=== PATIENT | female | born 1950 | race Caucasian/White ===

== ENCOUNTER → 2017-01-15 | Outpatient (CLI) | payer BC | END | disposition home or self-care (01) | LOC: MAMMO 11:30 | PROVIDERS: ATTEND Emergency Medicine | DX: Z12.31 Encounter for screening mammogram for malignant neoplasm of breast (principal) | CPT/HCPCS: 77063; G0202 ==

== ENCOUNTER → 2018-04-22 | Outpatient (CLI) | payer MEDICARE, OTHER ==
--- NOTE | 2018-04-24 09:39 | MAM ---
EXAM DESCRIPTION: 3D Screening BILATERAL : Digital Mammography. CLINICAL HISTORY: 68 years Female SCREENING . No complaints or personal history of breast cancer. Sister with breast cancer. Childbirth. Postmenopausal 11 years.. No HRT. Lifetime risk of developing breast cancer (Tyrer-Cuzick model)(%): 4.9. COMPARISON: Digital screening bilateral breast tomosynthesis 01/15/2017. TECHNIQUE: Bilateral CC and MLO projection full-field images, digital tomosynthesis mammographic technique. Bilateral digital 2-D full-field MLO images. CAD not available for tomosynthesis or 2-D images. FINDINGS: The breast parenchymal density pattern is: Scattered areas of fibroglandular density. No skin thickening or nipple retraction. . Left axillary lymph nodes. Solitary microcalcifications left breast. No new focal, stellate mass or density, focal asymmetry , and no suspicious microcalcifications bilaterally. Stable mammograms compared to prior study. IMPRESSION: Benign exam. BIRAD CATEGORY: 2 BENIGN FINDINGS. RECOMMENDATIONS: FOLLOW UP: Routine digital bilateral mammographic screening, one year interval from April 2018. Written communication explaining the IMPRESSION and follow-up, will be mailed to the patient and referring health care provider. According to the [employer], yearly mammograms are recommended starting at age 40 and continuing as long as a woman is in good health. Any breast change noted on a breast self-exam should be reported promptly to the patient's healthcare provider. Breast MRI is recommended for women with an approximately 20-25% or greater lifetime risk of breast cancer, including women with a strong family history of breast or ovarian cancer and women who have been treated for Hodgkin's disease. A negative mammographic report should not delay tissue diagnosis in patients with significant clinical history or physical findings. Extremely dense breast tissue limits the sensitivity of digital mammography. Electronically signed by: Felipe Rollins MD 04/24/2018 9:37 AM [employer]
== END ==
LOC: MAMMO 13:14
PROVIDERS: ATTEND Emergency Medicine
DX: Z12.31 Encounter for screening mammogram for malignant neoplasm of breast (principal)

== ENCOUNTER → 2019-05-06 | Outpatient (CLI) | payer MEDICARE, OTHER ==
--- NOTE | 2019-05-08 14:35 | MAM ---
EXAM DESCRIPTION: 3D Screening BILATERAL : Digital Mammography. CLINICAL HISTORY: 69 years Female ANNUAL SCREENING . No complaints. No personal history of breast cancer. Female sibling with breast cancer age 60. Remote family history of breast cancer. Menarche age 13. Childbirth age 21. Hysterectomy age unknown. No HRT. Lifetime risk of developing breast cancer (Tyrer-Cuzick model)(%): COMPARISON: Bilateral screening digital breast tomosynthesis April 2018 and December 2016. TECHNIQUE: Bilateral CC and MLO projection full-field images, digital tomosynthesis mammographic technique. Bilateral digital 2-D full-field MLO images. CAD available for 2-D images. FINDINGS: The breast parenchymal density pattern is: Scattered areas of fibroglandular density. No skin thickening or nipple retraction. Stable group of microcalcifications inferior anterior right breast left axillary lymph nodes. Vascular calcifications. No new focal, stellate mass or density, focal asymmetry , and no suspicious microcalcifications bilaterally. Stable mammograms compared to prior study. IMPRESSION: Benign exam. BIRAD CATEGORY: 2 BENIGN FINDINGS. RECOMMENDATIONS: FOLLOW UP: Routine digital bilateral mammographic screening, one year interval from March 2019. Written communication explaining the IMPRESSION and follow-up, will be mailed to the patient and referring health care provider. According to the [employer], yearly mammograms are recommended starting at age 40 and continuing as long as a woman is in good health. Any breast change noted on a breast self-exam should be reported promptly to the patient's healthcare provider. Breast MRI is recommended for women with an approximately 20-25% or greater lifetime risk of breast cancer, including women with a strong family history of breast or ovarian cancer and women who have been treated for Hodgkin's disease. A negative mammographic report should not delay tissue diagnosis in patients with significant clinical history or physical findings. Extremely dense breast tissue limits the sensitivity of digital mammography. Electronically signed by: Felipe Rollins MD 05/08/2019 2:33 PM SENIOR PRODUCER
== END ==
LOC: MAMMO 08:51
PROVIDERS: ATTEND Emergency Medicine
DX: Z12.31 Encounter for screening mammogram for malignant neoplasm of breast (principal)

== ENCOUNTER 2020-01-08 02:02 | Emergency (ER) | payer MEDICARE, OTHER ==
[2020-01-08] MEDS ORDERED: DEXAMETHASONE INJ 10 MG/ML VIAL IV ONE (02:36)
[2020-01-08] MEDS ORDERED: DEXAMETHASONE INJ 4 MG/ML VIAL IV ONE ×2 (02:37→03:25)
--- NOTE | 2020-01-08 02:37 | ED.PDOC ---
History of Present Illness - General Chief Complaint: General Stated Complaint: weak, sob, and dry mouth Time Seen by Provider: 01/08/20 02:25 Source: patient, RN notes reviewed, Vital Signs reviewed, other Exam Limitations: no limitations - History of Present Illness Initial Comments: 69 yo F with a hx of sjogrens syndrome which she takes plaquenil comes in with the c/c of shortness of breath. States she started to feel short of breath Sunday. Went to a different hospital at that time and had workup and sent home. Tonight she got significantly more short of breath. Denies chest pain, recent travel or recent immobilization. Denies cough. No known covid exposure. did have change in her taste. Quit smoking in 2006. Patient states she has not been able to eat or drink anything in several days because she feels like she can't breath when she does. Timing/Duration: 1 week Allergies/Adverse Reactions: Allergies NO KNOWN ALLERGY Allergy (Verified 01/08/20 02:25) Review of Systems - Review of Systems Constitutional: States: fever - subjective, malaise. Denies: chills EENTM: Denies: blurred vision, ear discharge, throat pain, throat swelling, mouth pain Respiratory: States: short of breath. Denies: cough, orthopnea, stridor, wheezing Cardiology: Denies: chest pain, palpitations Gastrointestinal/Abdominal: Denies: abdominal pain, diarrhea, nausea, vomiting Genitourinary: Denies: frequency, hematuria Musculoskeletal: Denies: joint pain, muscle pain Skin: Denies: change in hair/nails, dryness, rash Neurological: Denies: headache, numbness, paresthesia, pre-existing deficit, tingling, tremors, weakness Endocrine: Denies: unexplained weight gain, unexplained weight loss Hematologic/Lymphatic: Denies: blood clots, easy bleeding, easy bruising Past Medical History (General) - Patient Medical History Hx Seizures: No Hx Stroke: No Hx Dementia: No Hx Asthma: No Hx of COPD: No Hx Cardiac Disorders: No Hx Congestive Heart Failure: No Hx Pacemaker: No Hx Hypertension: No Hx Thyroid Disease: No Hx Diabetes: No - pre-diabetes Hx Gastroesophageal Reflux: No Hx Renal Disease: No Hx Cancer: No Hx of HIV: No Hx Hepatitis B: No Hx Hepatitis C: No Hx MRSA: No Hx Other PMH: Yes - sjogrens - Vaccination History Hx Influenza Vaccination: Yes - Social History Hx Tobacco Use: Yes Hx Chewing Tobacco Use: No Hx Alcohol Use: No Hx Substance Use: No Hx Substance Use Treatment: No Hx Depression: No Feels Threatened In Home Enviroment: No Feels Threatened In a Relationship: No Hx Physical Abuse: No Hx Emotional Abuse: No Hx Suspected Abuse: No - Female History Patient is a Female of Child Bearing Age (10 -59 yrs old): No Family Medical History - Family History Mother Family History: No Known Physical Exam - Physical Exam General Appearance: Alert, Anxious, Comfortable, Well Developed, Well Groomed, Well Hydrated, Well Nourished Eyes, Ears, Nose, Throat Exam: PERRL/EOMI, normal ENT inspection, TMs normal Neck: non-tender, full range of motion, supple, normal inspection Respiratory: chest non-tender, lungs clear, normal breath sounds, decreased breath sounds, accessory muscle use, other - tachypnea, accessory muscle use. 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 Upon arrival Patient bp systolic 97, HR 115-120, Saturation 80% on RA. Place on nonrebreather, still hypoxic, thus placed on bipap Fio2 70%. Attempted to wean down FIO2, but patient desaturated to 89%. Patient is resting comfortably at this time on bipap. COVID positive. Will give Dexamethasone and remdesivir. Appears to be an acute renal failure, last Cr was 0.89. Will hydrate. Evidence bilaterally pulmonary infiltrates with pumonary congestion noted. This should be helped with bipap. Due to Sepsis and KENDELL most likely due to dehydration will continue with fluids. BP improved to 124/88. Respirations improved. Patient sleeping comfortably with bipap. D-dimer elevated, may have underlying PE, will hold of on CTA for now. Will give a dose of heparin. 01/08/20 04:47 Called 4 different hospitals all covid units full, including ICU. [facility] accepted patient, state they have to dispo a patient to open ICU room. Will have room available at 645Am. Patient is stable at this time. Will continue to monitor. The data reviewed when caring for this patient included: nurse notes, prior records, etc. The history and assessments from nurses notes were reviewed and considered, and the patient's home medication list was also reviewed and considered. My assessment and the results of testing completed here in the ED were discussed with the patient/family. Patient has been accepted at [facility]. Pending bed. Katelin Rivas DO #[id number] 01/08/20 05:55 - Results/Orders Results/Orders: 01/08/20 02:30 BiPAP/CPAP Treatment ONCE 01/08/20 02:58 Sodium Chloride 0.9% 1000ML [Ns 1000 ml] 1,000 ml IVS STAT 01/08/20 03:00 Pulse Ox, Continuous Monitoring STAT 01/08/20 03:06 ABG [Arterial Blood Gas] Stat 01/08/20 03:30 EKG STAT 01/08/20 09:00 Remdesivir 200 mg Sodium Chloride 0.9% 250Ml [NS 250ml] 250 ml IVPB DAILY 01/09/20 03:00 Pulse Ox, Continuous Monitoring STAT 01/10/20 03:00 Pulse Ox, Continuous Monitoring STAT Laboratory Results WBC 10.9 K/mm3 (4.8-10.8) H 01/08/20 02:16 RBC 4.35 M/mm3 (4.20-5.40) 01/08/20 02:16 Hgb 13.0 gm/dL (12.0-16.0) 01/08/20 02:16 Hct 37.1 % (36.0-47.0) 01/08/20 02:16 MCV 85.3 fl (81.0-99.0) 01/08/20 02:16 MCH 29.9 pg (27.0-31.0) 01/08/20 02:16 MCHC 35.0 g/dL (33.0-37.0) 01/08/20 02:16 RDW 13.5 % (11.5-14.5) 01/08/20 02:16 Plt Count 348 K/mm3 (130-400) 01/08/20 02:16 MPV 8.6 fl (7.40-10.4) 01/08/20 02:16 Absolute Neuts (auto) 8.70 K/uL (1.8-6.8) H 01/08/20 02:16 Absolute Lymphs (auto) 1.00 K/uL (1.0-3.4) 01/08/20 02:16 Absolute Monos (auto) 1.20 K/uL (0.2-0.8) H 01/08/20 02:16 Absolute Eos (auto) 0.00 K/uL (0.0-0.4) 01/08/20 02:16 Absolute Basos (auto) 0.10 K/uL (0.0-0.1) 01/08/20 02:16 Neutrophils % 79.4 % (42.0-78.0) H 01/08/20 02:16 Lymphocytes % 8.9 % (20.0-50.0) L 01/08/20 02:16 Monocytes % 10.8 % (2.0-9.0) H 01/08/20 02:16 Eosinophils % 0.4 % (1.0-5.0) L 01/08/20 02:16 Basophils % 0.5 % (0.0-2.0) 01/08/20 02:16 PT 9.6 SECONDS (9.0-10.9) 01/08/20 02:16 INR < 1.00 (0.9-1.15) 01/08/20 02:16 PTT (SP) 32.7 SECONDS (21.8-31.6) H 01/08/20 02:16 D-Dimer, Quantitative 1690.0 ng/ml (131-400) H* 01/08/20 02:16 Sodium 135 mmol/L (135-145) 01/08/20 02:16 Potassium 3.1 mmol/L (3.6-5.0) L 01/08/20 02:16 Chloride 103 mmol/L (101-111) 01/08/20 02:16 Carbon Dioxide 12 mmol/L (21-31) L* 01/08/20 02:16 Anion Gap 23.1 (12-18) H 01/08/20 02:16 BUN 82 mg/dL (7-18) H 01/08/20 02:16 Creatinine 3.36 mg/dL (0.6-1.3) H 01/08/20 02:16 BUN/Creatinine Ratio 24.4 (10-20) H 01/08/20 02:16 Random Glucose 118 mg/dL (70-105) H 01/08/20 02:16 Serum Osmolality 295.9 mOsm/L (275-295) H 01/08/20 02:16 Lactic Acid 3.3 mmol/L (0.5-2.2) H* 01/08/20 02:16 Calcium 8.5 mg/dL (8.4-10.2) 01/08/20 02:16 Phosphorus 7.6 mg/dL (2.5-4.6) H 01/08/20 02:16 Magnesium 2.6 mg/dL (1.8-2.5) H 01/08/20 02:16 Total Bilirubin 0.6 mg/dL (0.2-1.0) 01/08/20 02:16 AST 48 IU/L (10-42) H 01/08/20 02:16 ALT 24 IU/L (10-60) 01/08/20 02:16 Alkaline Phosphatase 68 IU/L (42-121) 01/08/20 02:16 LD Total 555 IU/L (91-180) H 01/08/20 02:16 Creatine Kinase 45 IU/L (26-140) 01/08/20 02:16 Troponin I 0.03 ng/mL (0.01-0.05) 01/08/20 02:16 C-Reactive Protein 20.3 mg/dL (0-1.0) H* 01/08/20 02:16 B-Natriuretic Peptide 42.7 pg/ml (0-100) 01/08/20 02:16 Serum Total Protein 8.4 gm/dL (6.4-8.2) H 01/08/20 02:16 Albumin 3.0 g/dl (3.2-5.5) L 01/08/20 02:16 Globulin 5.4 gm/dL (2.3-3.5) H 01/08/20 02:16 Albumin/Globulin Ratio 0.6 (1.1-1.9) L 01/08/20 02:16 - EKG/XRAY/CT EKG: Sinus, Tachy Comments: normal intervals, nonspecific st/t wave changes. no prior for comparision. XRAY: chest - pulmonary congestion. Departure - Departure Clinical Impression: COVID-19, KENDELL (acute kidney injury) Pneumonia Qualifiers: Pneumonia type: due to unspecified organism Laterality: bilateral Lung location: unspecified part of lung Qualified Code(s): J18.9 - Pneumonia, unspecified organism Sepsis Qualifiers: Sepsis type: sepsis due to unspecified organism Sepsis acute organ dysfunction status: with acute organ dysfunction Severe sepsis acute organ dysfunction type: acute renal failure Acute renal failure type: unspecified Severe sepsis shock status: unspecified Qualified Code(s): A41.9 - Sepsis, unspecified organism Time of Disposition: 05:47 Disposition: Transfer to Hospital Departure Forms: ED Discharge - Pt. Copy, Patient Portal Self Enrollment Transfer to Outside Facility - Transfer Information Decision to Transfer Date: 01/08/20 Decision to Transfer Time: 03:07 Reason for Transfer: ICU Accepting Facility: [facility]
[2020-01-08] MEDS ORDERED: SODIUM CHLORIDE 0.9% 1000ML 1,000 ML IVS PRN (02:58)
--- NOTE | 2020-01-08 03:19 | RAD ---
EXAM DESCRIPTION: Chest,1 View CLINICAL HISTORY: sob COMPARISON: Chest x-ray 01/19/2009 FINDINGS: Cardiac silhouette is within normal limits. There are prominent interstitial markings and diffuse airspace shadowing most prominent on the right, as well as inferiorly. There is no acute osseous process visualized. IMPRESSION: Findings suggestive of pulmonary edema, right greater than left. Electronically signed by: John Gleason MD 01/08/2020 3:17 AM CDT
[2020-01-08] MEDS ORDERED: FUROSEMIDE INJ 20 MG/2 ML VIAL IV ONE (03:23)
[2020-01-08] MEDS ORDERED: HEPARIN SODIUM (PORCINE) 5,000 U/ML VIAL IV ONE (05:56)
[2020-01-08] MEDS ORDERED: HEPARIN SODIUM (PORCINE) 5,000 U/ML VIAL ONE (08:18)
[2020-01-08] MEDS ORDERED: REMDESIVIR 200 MG in SODIUM CHLORIDE 0.9% 250ML 250 ML IVPB SCH (09:00)
[2020-01-08 10:25] VITALS: BP 129/83; TEMP 96.5; O2SAT 93
== END 2020-01-08 09:45 | disposition short-term general hospital (02) ==
LOC: ER 02:02
DX: A41.89 Other specified sepsis (principal); U07.1 COVID-19; J12.89 Other viral pneumonia; R65.20 Severe sepsis without septic shock; N17.9 Acute kidney failure, unspecified; R73.03 Prediabetes; R06.02 Shortness of breath; Z87.891 Personal history of nicotine dependence; M35.00 Sjogren syndrome, unspecified; E86.0 Dehydration
CPT/HCPCS: 36415; 71045; 80053; 82550; 83605; 83615; 83735; 83880; 84100; 84484; 85025; 85379; 85610; 85730; 86140; 87502; 87635; 93005; 94660; J1100; J1644; J1940; J2060; J7030; J7050